=== PATIENT | female | born 1970 | race African-American/Black ===

== ENCOUNTER 2017-03-05 14:30 | Emergency (ER) | payer OTHER ==
[~2017-03-05] VITALS: Ht 162.6 cm; Wt 81.8 kg
[2017-03-05 15:54] LABS: HEMATOCRIT 39.5 % (36.0-46.0); MCH 28.4 PG (29.0-34.0); MCHC 33.7 G/DL (30.0-36.0); MCV 84.2 FL (83-99); MEAN PLAT.VOLUME 9.1 uM^3 (9.5-12.4); PLATELET COUNT 324 K/uL (156-360); RBC DIS.WIDTH-CV 13.5 % (11.8-14.6); RBC DIS.WIDTH-SD 41.7 % (39-53); RED BLOOD COUNT 4.69 M/uL (3.80-5.20); WHITE BLOOD COUNT 9.7 K/uL (4.1-10.2)
[2017-03-05 16:02] LABS: CHLORIDE 104 mEq/L (99-109); SODIUM 136 mEq/L (136-147)
[2017-03-05 16:04] LABS: GLUCOSE 86 mg/dL (70-99)
[2017-03-05 16:06] LABS: ANION GAP 11 MEQ/L (2-14)
[2017-03-05 16:08] LABS: GFR ESTIMATE (CALCULATED) > 59 mL/min/
[2017-03-05 16:09] LABS: UREA NITROGEN (BUN) 11 mg/dL (9-23)
[2017-03-05] MEDS ORDERED: MEDROL DOSEPAK4 MG PO (20:12)
[2017-03-05] MEDS ORDERED: AUGMENTIN875 MG PO (20:12)
[2017-03-05] MEDS ORDERED: FIORICET 50-301 EACH PO (20:12)
[2017-03-05 20:30] VITALS: BP 122/75
== END 2017-03-05 20:24 | disposition home or self-care (01) ==
LOC: EME 14:30
PROVIDERS: Physician Assistant
DX: J01.90 Acute sinusitis, unspecified (principal); R11.0 Nausea; I10 Essential (primary) hypertension
CPT/HCPCS: 70450; 70486; 71020; 80048; 85027; 99281; 99285; J1100; J1200; J2765; J7030

== ENCOUNTER 2018-01-09 04:24 | Emergency (ER) | payer OTHER ==
[~2018-01-09] VITALS: Ht 162.6 cm; Wt 85.2 kg
[~2018-01-09 04:24] MED LIST: AUGMENTIN875 MG PO; FIORICET 50-301 EACH PO; MEDROL DOSEPAK4 MG PO
[2018-01-09] MEDS ORDERED: MOTRIN800 MG PO (06:33)
[2018-01-09 06:57] VITALS: BP 138/96
== END 2018-01-09 06:58 | disposition home or self-care (01) ==
LOC: EME 04:24
DX: S01.81XA Laceration without foreign body of other part of head, initial encounter (principal); W10.9XXA Fall (on) (from) unspecified stairs and steps, initial encounter; Z23 Encounter for immunization
CPT/HCPCS: 99281; 99285